=== PATIENT | female | born 1960 | race Caucasian/White ===

== ENCOUNTER 2023-04-06 08:00 | Outpatient (NON) | payer MEDICARE, SELFPAY | END 2023-04-06 08:01 | disposition home or self-care (01) | PROVIDERS: Visit Provider Internal Medicine Gastroenterology | DX: D12.5 Benign neoplasm of sigmoid colon (principal) | CPT/HCPCS: 88305 ==

== ENCOUNTER 2023-04-06 09:53 | Day surgery (SDC) | payer MEDICARE, SELFPAY ==
[2023-03-15 12:52] VITALS: BMI 26.7
--- NOTE | 2023-04-05 11:07 | WPDANESEPPF ---
Anes - Initial Pre Proc Eval Procedure: Operation Date: 04/06/23 12:30 Proposed Procedures p Screening Colonoscopy - Zia Vivar MD Date/Time: 04/05/23 11:07 Surgeon: Zia Vivar MD Pre Op Diagnosis: Neoplasm Screening Patient Data Age: 62 Gender: F Height: 1.57 m Weight: 66.5 kg Allergies Allergy/AdvReac Type Severity Reaction Status Date / Time codeine Allergy Unknown Unknown Verified 04/06/23 10:55 TAPE AdvReac Unknown Unknown Uncoded 04/06/23 10:55 Home Medications Medication Instructions Recorded Confirmed Type sodium,potassium,mag sulfates 17.5 See Rx Instructions PO .COMPLEX 03/15/23 04/06/23 Rx gram-3.13 gram-1.6 gram oral soln #354 mL (Suprep Bowel Prep Kit) atorvastatin 40 mg tablet 40 mg PO DAILY 03/28/23 04/06/23 History carbidopa 25 mg-levodopa 250 mg 1 tablet PO HS 03/28/23 04/06/23 History tablet trazodone 50 mg tablet 100 mg PO HS 03/28/23 04/06/23 History Patient hx anesthesia problems: none Family hx anesthesia problems: none Results Review: All pre-operative results and documents have been reviewed as part of the pre-operative evaluation. [facility] Past Medical History Medical History (Updated 04/06/23 @ 11:33 by Zia Vivar MD) Fibromyalgia Hyperlipidemia SVT (supraventricular tachycardia) Surgical History Surgical History (Updated 04/05/23 @ 11:08 by Kev Mcgee DO) History of appendectomy History of cardiac radiofrequency ablation History of cholecystectomy History of hysterectomy Social History Social History Smoking status: Never smoker Alcohol intake: current Alcohol use details: 1 glass of wine daily Substance use: never Substance use type: does not use Living arrangements: with family Spiritual care concerns: No Anes - Eval Final PreProcedure Day of Procedure 04/05/23 11:07 Patient weight: overweight Heart: regular rate and rhythm Lungs: clear to auscultation Airway: Mallampati scale class II Neurological: alert and oriented Last oral intake: >/= 8 hours ASA classification: III Emergent: no Anesthetic plan: proceed Anesthesia type and monitoring: general GIVS and standard monitoring Results Review: All pre-operative results and documents have been reviewed as part of the pre-operative evaluation. Informed Consent: The patient's anesthetic plan and its attendant risks and benefits were discussed with the patient/family/POA. Questions were solicited and answers provided to the satisfaction of the patient/family/POA.
[2023-04-06 10:55] VITALS: BP 109/80; PULSE 80; RESP 15; TEMP 36.6; O2SAT 97
[2023-04-06] MEDS: LACTATED RINGERS 1,000 ML 150 ML IV CONT (11:07)
--- NOTE | 2023-04-06 11:31 | PM.HPGS ---
History of Present Illness History of Present Illness Consent: Risks, benefits, and alternatives have been discussed and questions answered. Patient agrees to proceed with procedure. Chief complaint: Neoplasm Screening Narrative: Yamilka Garibay is a 62 year old female Presents for screening colonoscopy. Patient's current weight appetite and bowel movements are normal. Patient denies abdominal pain. Has had no bleeding. Family history is noncontributory. .She Presents today for screening colonoscopy. Review of Systems Review of Systems: Review of systems noncontributory. [facility] Past Medical History Medical History (Updated 04/06/23 @ 11:33 by Zia Vivar MD) Fibromyalgia Hyperlipidemia SVT (supraventricular tachycardia) Surgical History Surgical History (Updated 04/05/23 @ 11:08 by Kev Mcgee DO) History of appendectomy History of cardiac radiofrequency ablation History of cholecystectomy History of hysterectomy Social History Social History Smoking status: Never smoker Alcohol intake: current Alcohol use details: 1 glass of wine daily Substance use: never Substance use type: does not use Living arrangements: with family Spiritual care concerns: No Meds Home Medications and Allergies Home Medications Medication Instructions Recorded Confirmed Type sodium,potassium,mag sulfates 17.5 See Rx Instructions PO .COMPLEX 03/15/23 04/06/23 Rx gram-3.13 gram-1.6 gram oral soln #354 mL (Suprep Bowel Prep Kit) atorvastatin 40 mg tablet 40 mg PO DAILY 03/28/23 04/06/23 History carbidopa 25 mg-levodopa 250 mg 1 tablet PO HS 03/28/23 04/06/23 History tablet trazodone 50 mg tablet 100 mg PO HS 03/28/23 04/06/23 History Allergies Allergy/AdvReac Type Severity Reaction Status Date / Time codeine Allergy Unknown Unknown Verified 04/06/23 10:55 TAPE AdvReac Unknown Unknown Uncoded 04/06/23 10:55 Vital Signs Vital Signs - 24 hr 04/06/23 10:55 Temperature 98 F Pulse Rate 80 Respiratory Rate 15 Blood Pressure 109/80 Pulse Oximetry 97 Oxygen Delivery Room Air Exam Narrative: Physical exam reveals patient signs stable. HEENT exam is unremarkable. Patient is anicteric. Lungs are clear to auscultation and percussion. Heart is without murmur or extra sounds. Abdomen bowel sounds are present soft nontender with no organomegaly. Digital external rectal exam is normal. Assessment and Plan Assessment and plan (1) Encounter for screening colonoscopy: Code(s): Z12.11 - Encounter for screening for malignant neoplasm of colon Status: Acute Assessment and Plan: Patient presents today for screening colonoscopy. She appears to be at average risk for colon polyps. Further recommendations may be given after endoscopy.
[2023-04-06 12:28] VITALS: BP 111/67; PULSE 78; RESP 14; O2SAT 97
[2023-04-06 12:38] VITALS: BP 106/70; PULSE 73; RESP 14; O2SAT 98
--- NOTE | 2023-04-06 12:38 | WPDANESPN ---
Anes - Prog Note Post-Op Date/Time: 04/06/23 12:38 Cardiovascular status: normal Respiratory status: normal Airway patency: baseline Mental status: baseline Post-Op hydration status: normal Vital Signs: Last Vital Signs Temp 36.6 C 04/06/23 10:55 Pulse 78 04/06/23 12:28 Resp 14 04/06/23 12:28 BP 111/67 04/06/23 12:28 Pulse Ox 97 04/06/23 12:28 O2 Del Method Room Air 04/06/23 12:28 Pain Score (VAS): 0 I/O: Intake & Output 04/05/23 04/06/23 04/06/23 23:59 07:59 15:59 Intake Total 200 Balance 200 Post-procedural complaints: none Patient Feedback: Patient satisfied with anesthetic care. Other Findings: Patient vital signs back to baseline. Patient denies nausea and vomiting. Patient's pain under control. Patient OK for discharge.
[2023-04-06 12:48] VITALS: BP 109/79; PULSE 76; RESP 16; O2SAT 100
== END 2023-04-06 13:05 | disposition home or self-care (01) ==
PROVIDERS: Visit Provider Internal Medicine Gastroenterology
PROC: 0DJD8ZZ Inspection of Lower Intestinal Tract, Via Natural or Artificial Opening Endoscopic (ICD-10-PCS; CPT 45378; principal; 2023-04-06 12:30)
DX: Z12.11 Encounter for screening for malignant neoplasm of colon (principal); D12.5 Benign neoplasm of sigmoid colon; K64.8 Other hemorrhoids
CPT/HCPCS: 45385